=== PATIENT | female | born 2005 | race Caucasian/White ===

== ENCOUNTER 2023-03-05 16:41 | Emergency (ER) | payer OTHER ==
[2023-03-05] MEDS ORDERED: TETANUS, DIPHTHERIA TOX,ADULT (TDVAX) 0.5 ML VIAL IM ONE (18:43)
== END 2023-03-05 18:55 | disposition home or self-care (01) ==
LOC: EDSEX 16:41 → NAV ERS 16:41
DX: S00.83XA Contusion of other part of head, initial encounter (principal); F17.200 Nicotine dependence, unspecified, uncomplicated; V89.2XXA Person injured in unspecified motor-vehicle accident, traffic, initial encounter; Z23 Encounter for immunization
CPT/HCPCS: 70450; 72125; 90471; 90714